=== PATIENT | female | born 1995 | race Caucasian/White ===

== ENCOUNTER 2016-12-03 08:52 | Outpatient (CLI) | payer BC, OTHER | END 2016-12-03 08:53 | disposition home or self-care (01) | DX: Z11.3 Encounter for screening for infections with a predominantly sexual mode of transmission (principal) ==

== ENCOUNTER 2016-12-07 11:28 | Outpatient (CLI) | payer OTHER ==
[2016-12-07 20:07] LABS: BASOPHILS % (AUTO) 0.5 %; EOSINOPHILS # (AUTO) 0.1 10^3/uL (0.0-0.7); HCT - HEMATOCRIT 36.4 % (37.0-47.0); HGB - HEMOGLOBIN 12.2 g/dL (12.0-16.0); LYMPHOCYTES % (AUTO) 27.4 %; MEAN CORPUSCULAR HEMOGLOBIN 29.9 pg (27.0-31.0); MEAN CORPUSCULAR HGB CONC 33.5 g/dL (32.0-36.0); MEAN CORPUSCULAR VOLUME 89.3 fL (81.0-99.0); MEAN PLATELET VOLUME 10.4 fL (7.9-10.8); MONOCYTES # (AUTO) 0.6 10^3/uL (0.0-1.0); MONOCYTES % (AUTO) 7.9 %; NEUTROPHILS # (AUTO) 4.5 10^3/uL (1.5-6.6); NEUTROPHILS % (AUTO) 62.2 %; NUCLEATED RED BLOOD CELLS AUTO 0.1 /100WBC; RED BLOOD COUNT 4.08 10^6/uL (4.20-5.40); RED CELL DISTRIBUTION WIDTH 13.3 % (12.0-15.0); UNCORRECTED WHITE BLOOD COUNT 7.3 x10^3/uL; WHITE BLOOD COUNT 7.3 x10^3/uL (4.8-10.8)
[2016-12-07 20:38] LABS: BILIRUBIN,URINE NEGATIVE (NEGATIVE); PH,URINE 7.5 PH (5.0-7.5)
[2016-12-07 21:40] LABS: WBC,URINE 0-3 /HPF (0-5)
[2016-12-08 10:38] LABS: TEST RESULT REPORT (())
== END 2016-12-07 23:59 | disposition home or self-care (01) ==
LOC: LAB.N 11:28
PROVIDERS: ATTEND Obstetrics & Gynecology
DX: Z36 Encounter for antenatal screening of mother (principal)
CPT/HCPCS: 36415; 81001; 81599; 85025; 86592; 86762; 86850; 86900; 86901; 87340; 87389

== ENCOUNTER 2017-02-18 07:23 | Outpatient (CLI) | payer OTHER ==
--- NOTE | 2017-02-18 14:36 | Ultrasound Report ---
OB ULTRASOUND: 02/18/2017 CLINICAL INDICATION: anatomy. TECHNIQUE: Real-time scanning was performed with office machines sales representative static images obtained. LAST MENSTRUAL PERIOD --- Clinical Age --- US Age 20 weeks 2 days EFW Hadlock 350 g EFW% Hadlock --- Heart Rate 138 bpm EDC 07/07/2017 US EDC 07/06/2017 BPD [place] 20 weeks 0 days; Mean mm 46.3 HC [place] 20 weeks 3 days; Mean mm 179.8 AC [place] 20 weeks 4 days; Mean mm 153.5 FL [place] 20 weeks 1 day; Mean mm 32.7 Presentation breech Placental Location posterior Cervical Length 4.1 cm Amniotic Fluid 13.5 cm FINDINGS: There is a single viable intrauterine gestation, in breech presentation. heart rate is 138 BPM. The placenta is posterior, without evidence of previa. Amniotic fluid volume is normal, with an URIEL of 13.5. By size, the fetus measures 20.3 weeks (uncertain LMP). The following anatomic structures were visualized and appear normal: The intracranial contents, including the ventricles and posterior fossa; the lips and orbits; the spine; the heart, including 4 chamber view and outflow tracts, and diaphragm; the abdominal contents, including the stomach, the bilateral kidneys, and urinary bladder, as well as a normal 3 vessel cord insertion; 4 limbs. No free fluid or adnexal lesion is appreciated. IMPRESSION: SINGLE VIABLE INTRAUTERINE GESTATION, MEASURING 20.3 WEEKS BY SIZE. NORMAL ANATOMIC SURVEY. [facility]
== END 2017-02-18 07:24 | disposition home or self-care (01) ==
LOC: DI 07:23
PROVIDERS: ATTEND Obstetrics & Gynecology
DX: Z34.82 Encounter for supervision of other normal pregnancy, second trimester (principal); Z3A.20 20 weeks gestation of pregnancy
CPT/HCPCS: 76811

== ENCOUNTER 2017-04-02 08:00 | Outpatient (CLI) | payer OTHER | END 2017-04-02 08:01 | disposition home or self-care (01) | LOC: LAB.N 08:00 | PROVIDERS: ATTEND Obstetrics & Gynecology | DX: Z36 Encounter for antenatal screening of mother (principal) | CPT/HCPCS: 36415; 82950; 85018; 86850 ==

== ENCOUNTER 2017-04-24 18:11 | Outpatient (CLI) | payer OTHER ==
[2017-04-24 18:23] VITALS: BP 125/78
[2017-04-24] MEDS ORDERED: ONDANSETRON 4 MG/2 ML VIAL IVP PRN (18:54)
[2017-04-24] MEDS ORDERED: SODIUM CHLORIDE FLUSH 0.9% 10 ML SYRINGE IVP PRN (18:54)
[2017-04-24] MEDS ORDERED: fentaNYL 100 MCG/2 ML VIAL IVP PRN (18:54)
[2017-04-24] MEDS ORDERED: PENICILLIN G POTASSIUM 5,000,000 UNIT in SODIUM CHLORIDE 0.9% MINIBAG 100 ML IV ONE (18:54)
[2017-04-24] MEDS ORDERED: LACTATED RINGERS 1,000 ML IV SCH (19:00)
[2017-04-24] MEDS ORDERED: ACETAMINOPHEN 325 MG TABLET PO SCH (19:00)
[2017-04-24] MEDS ORDERED: SODIUM CHLORIDE FLUSH 0.9% 10 ML SYRINGE IVP SCH (22:00)
== END 2017-04-24 19:40 | disposition home or self-care (01) ==
LOC: WFO 18:11 → FBP 18:13 → WFO 19:40
PROVIDERS: ATTEND Obstetrics & Gynecology
DX: O9A.213 Injury, poisoning and certain other consequences of external causes complicating pregnancy, third trimester (principal); O36.8130 Decreased fetal movements, third trimester, not applicable or unspecified; Z3A.29 29 weeks gestation of pregnancy; W19.XXXA Unspecified fall, initial encounter
CPT/HCPCS: 85025; 99212

== ENCOUNTER 2017-06-05 13:22 | Outpatient (CLI) | payer OTHER | END 2017-06-05 13:23 | disposition home or self-care (01) | LOC: WFO 13:22 | PROVIDERS: ATTEND Obstetrics & Gynecology | DX: Z53.9 Procedure and treatment not carried out, unspecified reason (principal) ==

== ENCOUNTER 2017-06-08 08:00 | Outpatient (CLI) | payer OTHER | END 2017-06-08 08:01 | LOC: LAB.R 08:00 | PROVIDERS: ATTEND Obstetrics & Gynecology | DX: Z36.9 Encounter for antenatal screening, unspecified (principal) | CPT/HCPCS: 87081 ==

== ENCOUNTER 2017-06-13 21:57 | Emergency (ER) | payer OTHER ==
--- NOTE | 2017-06-13 22:03 | ED Physician Documentation ---
PD HPI URI - Stated complaint Stated Complaint: FLU SYMPTOMS/30 WK OB - Chief complaint Chief Complaint: General - History obtained from History obtained from: Patient - History of Present Illness Timing - onset: How many days ago (3) Timing duration: Days (3) Timing details: Gradual onset, Still present Associated symptoms: Fever (subjective but not by thermometer), Chills, Ear pain , Nasal congestion, Sore throat, Dry cough. 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 No: Travel, Immunocompromised, Unimmunized, COPD / asthma Improves by: Medication (mucinex helped some.) Similar symptoms before: Has not had sx before Recently seen: Clinic (recent OB visit without problems. She is 37 weeks gest age.) Review of Systems Constitutional: reports: Fever, Chills, Myalgias Nose: reports: Rhinorrhea / runny nose, Congestion Throat: reports: Sore throat Cardiac: denies: Chest pain / pressure Respiratory: reports: Dyspnea, Cough. denies: Wheezing GI: reports: Nausea. denies: Abdominal Pain, Vomiting, Diarrhea : denies: Dysuria, Discharge, Vaginal bleeding Skin: denies: Rash, Lesions Neurologic: denies: Focal weakness, Numbness, Near syncope, Headache Endocrine: denies: Weight loss Immunocompromised: denies: Immunocompromised PD PAST MEDICAL HISTORY - Past Medical History Cardiovascular: None Respiratory: None Neuro: None Endocrine/Autoimmune: None - Present Medications Home Medications: Ambulatory Orders Medication Instructions Recorded Confirmed Albuterol Sulf [Ventolin Hfa 1 - 2 puffs INH Q4HR PRN #1 inhaler 06/13/17 Inhaler] Ondansetron Odt [Zofran] 4 mg TL Q6H PRN #15 tablet 06/13/17 Valacyclovir HCl [Valtrex] 1 tab PO DAILY 06/13/17 06/13/17 - Allergies Allergies/Adverse Reactions: Allergies Allergy/AdvReac Type Severity Reaction Status Date / Time No Known Drug Allergies Allergy Verified 06/13/17 22:02 PD ED PE NORMAL - Vitals Vital signs reviewed: Yes - General General: Alert and oriented X 3, No acute distress, Well developed/nourished - HEENT HEENT: Ears normal, Pharynx benign. No: Moist mucous membranes - Neck Neck: Supple, no meningeal sign, No adenopathy - Cardiac Cardiac: RRR, No murmur - Respiratory Respiratory: Clear bilaterally - Abdomen Abdomen: Soft, Non tender, Other (gravid without any tenderness) - Female Female : Deferred - Rectal Rectal: Deferred - Back Back: No CVA TTP - Derm Derm: Normal color, Warm and dry - Neuro Neuro: Alert and oriented X 3, No motor deficit, Normal speech Results - Vitals Vitals: Vital Signs - 24 hr 06/13/17 06/13/17 06/13/17 22:01 22:25 23:26 Temperature 36.8 C 36.7 C Heart Rate 88 84 81 Respiratory 20 16 24 Rate Blood Pressure 138/89 H 145/74 H O2 Saturation 98 98 Oxygen O2 Source Room air - Labs Labs: Laboratory Tests 06/13/17 06/13/17 22:30 22:30 Sodium 135 Potassium 4.0 Chloride 105 Carbon Dioxide 21 Anion Gap 9.0 BUN 11 Creatinine 0.5 Estimated GFR (MDRD) 153 Glucose 92 Calcium 9.3 Total Bilirubin < 0.2 L AST 16 ALT 10 Alkaline Phosphatase 117 Total Protein 7.0 Albumin 2.8 L Globulin 4.2 Albumin/Globulin Ratio 0.7 L Lipase 24 Influenza A (Rapid) Negative Influenza B (Rapid) Negative Influenza Types A,B Ag - PD MEDICAL DECISION MAKING - ED course Complexity details: re-evaluated patient (feeling better with neb, zofran and fluids. Still with malaise and congestion/some cough. ), considered differential , d/w patient, d/w PMD (Dr. Torres, who will see her in office tomorrow. ) Departure - Departure Disposition: 01 Home, Self Care Clinical Impression: Upper respiratory infection Qualifiers: URI type: unspecified URI Qualified Code(s): J06.9 - Acute upper respiratory infection, unspecified Qualifiers: Weeks of gestation: 37 weeks Qualified Code(s): Z3A.37 - 37 weeks gestation of Condition: Stable Record reviewed to determine appropriate education?: Yes Instructions: ED Upper Resp Infec No Abx Tx Prescriptions: Albuterol Sulf [Ventolin Hfa Inhaler] 1 - 2 puffs INH Q4HR PRN #1 inhaler PRN Reason: Shortness Of Air/Wheezing Ondansetron Odt [Zofran] 4 mg TL Q6H PRN #15 tablet PRN Reason: Nausea / Vomiting Comments: Drink lots of fluids. Tylenol if needed for pains or aches. Use the albuterol inhaler 2 puffs 4 times a day to help with cough and breathing. You can use guaifenesin for cough and congestion. Ondansetron if needed for nausea. Follow -up with GROUP MANAGING DIRECTOR this week as planned. Discharge Date/Time: 06/14/17 00:00
[2017-06-13] MEDS ORDERED: SODIUM CHLORIDE 0.9% 1,000 ML IV ONE ×2 (22:15→22:17)
[2017-06-13] MEDS ORDERED: ALBUTEROL NEB 2.5 MG/3 ML INH STA (22:15)
[2017-06-13] MEDS ORDERED: ONDANSETRON 4 MG/2 ML VIAL IVP STA ×2 (22:15→23:38)
[2017-06-13] MEDS ORDERED: ACETAMINOPHEN 325 MG TABLET PO STA (22:17)
[2017-06-13] MEDS ORDERED: ALBUTEROL NEB 2.5 MG/3 ML INH ONE (22:35)
[2017-06-13] MEDS ORDERED: ACETAMINOPHEN 325 MG TABLET PO ONE (22:39)
[2017-06-13] MEDS ORDERED: ONDANSETRON 4 MG/2 ML VIAL ONE ×2 (22:39→23:49)
[2017-06-13 22:49] LABS: ALBUMIN/GLOBULIN RATIO 0.7 (1.0-2.2); BILIRUBIN,TOTAL < 0.2 mg/dL (0.2-1.0); BUN - BLOOD UREA NITROGEN 11 mg/dL (6-20); CALCIUM 9.3 mg/dL (8.5-10.3); CARBON DIOXIDE - CO2 21 mmol/L (21-32); CHLORIDE 105 mmol/L (101-111); CREATININE 0.5 mg/dL (0.4-1.0); GFR - MDRD 153 (>89); GLUCOSE 92 mg/dL (70-100); LIPASE 24 U/L (22-51); SODIUM 135 mmol/L (135-145)
[2017-06-13 23:27] VITALS: BP 145/74
[2017-06-13] MEDS ORDERED: ONDANSETRON ODT 4 MG Prepack 2 TL PRN (23:38)
[2017-06-13] MEDS ORDERED: MAG HYDROX/AL HYDROX/SIMETH 30 ML UDC PO STA (23:38)
[2017-06-13] MEDS ORDERED: MAG HYDROX/AL HYDROX/SIMETH 30 ML UDC ONE (23:50)
[2017-06-13] MEDS ORDERED: ONDANSETRON ODT 4 MG Prepack 2 TL ONE (23:50)
== END 2017-06-14 | disposition home or self-care (01) ==
LOC: ED 21:57
DX: O26.893 Other specified pregnancy related conditions, third trimester (principal); J06.9 Acute upper respiratory infection, unspecified; Z3A.37 37 weeks gestation of pregnancy
CPT/HCPCS: 36415; 80053; 83690; 87275; 87276; 94640; 96361; 96374; 96376; 99283; 99284; A9270; J7613

== ENCOUNTER 2017-07-07 02:34 | Inpatient (IN) | payer OTHER ==
[2017-07-07] MEDS ORDERED: SODIUM CHLORIDE FLUSH 0.9% 10 ML SYRINGE IVP PRN (03:21)
[2017-07-07] MEDS ORDERED: OXYTOCIN/SODIUM CHLORIDE 250 ML IV ONE ×2 (03:21→08:33)
[2017-07-07] MEDS ORDERED: ONDANSETRON 4 MG/2 ML VIAL IVP PRN (03:21)
[2017-07-07] MEDS ORDERED: PENICILLIN G POTASSIUM 5,000,000 UNIT in SODIUM CHLORIDE 0.9% MINIBAG 100 ML IV ONE (03:21)
[2017-07-07] MEDS: LACTATED RINGERS 1,000 ML IV SCH ×3 (03:50→19:30)
[2017-07-07] MEDS ORDERED: PENICILLIN G POTASSIUM 2,500,000 UNIT in SODIUM CHLORIDE 0.9% 100ML 100 ML IV SCH ×2 (04:00→08:00)
[2017-07-07] MEDS: fentaNYL 100 MCG/2 ML VIAL IVP PRN ×2 (04:25→06:16)
[2017-07-07 04:30] LABS: BASOPHILS # (AUTO) 0.1 10^3/uL (0.0-0.1); BASOPHILS % (AUTO) 0.9 %; EOSINOPHILS # (AUTO) 0.1 10^3/uL (0.0-0.7); EOSINOPHILS % (AUTO) 0.8 %; HGB - HEMOGLOBIN 11.6 g/dL (12.0-16.0); LYMPHOCYTES # (AUTO) 3.1 10^3/uL (1.5-3.5); LYMPHOCYTES % (AUTO) 24.4 %; MEAN CORPUSCULAR HEMOGLOBIN 28.4 pg (27.0-31.0); MEAN CORPUSCULAR HGB CONC 32.5 g/dL (32.0-36.0); MEAN CORPUSCULAR VOLUME 87.5 fL (81.0-99.0); MEAN PLATELET VOLUME 11.5 fL (7.9-10.8); MONOCYTES % (AUTO) 7.5 %; NEUTROPHILS # (AUTO) 8.4 10^3/uL (1.5-6.6); NEUTROPHILS % (AUTO) 66.4 %; PLT - PLATELET COUNT 203 10^3/uL (130-450); RED CELL DISTRIBUTION WIDTH 15.1 % (12.0-15.0); WHITE BLOOD COUNT 12.7 x10^3/uL (4.8-10.8)
[2017-07-07] MEDS ORDERED: PENICILLIN G POTASSIUM 5,000,000 UNIT in SODIUM CHLORIDE 0.9% MINIBAG 100 ML IV SCH (04:38)
[2017-07-07] MEDS ORDERED: fent/BUPIV 2 MCG/0.125% 0 ML EP ONE (05:09)
[2017-07-07] MEDS ORDERED: TERBUTALINE 1 MG/ML VIAL SUBQ ONE (05:35)
[2017-07-07] MEDS ORDERED: TERBUTALINE 1 MG/ML VIAL SUBQ SCH ×2 (05:50→06:11)
[2017-07-07] MEDS ORDERED: ALBUTEROL 6.7 GM INHALER INH PRN (05:51)
--- NOTE | 2017-07-07 06:16 | PROVIDER PROGRESS NOTE ---
Subjective - Prog Note Date Prog Note Date: 07/07/17 Prog Note Time: 06:12 Objective - Vital Signs/Intake & Output Reviewed Vital Signs: Yes Vital Signs: Vital Signs x48h Temp Pulse Resp BP Pulse Ox 07/07/17 02:51 97.9 F 66 22 126/75 100 - Objective General Appearance: positive: Moderate distress Neurologic/Psychiatric: positive: Oriented x3 - Lab Results Fish Bones: 07/07/17 03:45 Other Labs: Lab Results x24hrs 07/07/17 Range/Units 03:45 WBC 12.7 H (4.8-10.8) x10^3/uL RBC 4.10 L (4.20-5.40) 10^6/uL Hgb 11.6 L (12.0-16.0) g/dL Hct 35.8 L (37.0-47.0) % MCV 87.5 (81.0-99.0) fL MCH 28.4 (27.0-31.0) pg MCHC 32.5 (32.0-36.0) g/dL RDW 15.1 H (12.0-15.0) % Plt Count 203 (130-450) 10^3/uL MPV 11.5 H (7.9-10.8) fL Neut # 8.4 H (1.5-6.6) 10^3/uL Lymph # 3.1 (1.5-3.5) 10^3/uL [place] # 1.0 (0.0-1.0) 10^3/uL Eos # 0.1 (0.0-0.7) 10^3/uL Baso # 0.1 (0.0-0.1) 10^3/uL Absolute Nucleated RBC 0.01 x10^3/uL Nucleated RBC % 0.1 /100WBC Assessment/Plan - Problem List (1) Active labor at term Impression: 22 yo with a 40w0d IUP Active labor decel x 10 minutes down to the 80's Labor course concerning for high station GBS positive, S/p 1st dose of PCN No S/s HSV Will continue PCN Have anesthesia, Jimmy Cano FAMILY MEDIATOR, place epidural Will share with the patient my concerns of a potential delivery once she is more comfortable H&P dictated [id number]
--- NOTE | 2017-07-07 06:49 | PROVIDER PROGRESS NOTE ---
Subjective - Prog Note Date Prog Note Date: 07/07/17 Prog Note Time: 06:48 - Subjective Subjective: Patient lying on her right side, in a chair holding her hand. Mom and dad at bedside. Patient in a lot of pain. Back having spasms causing her pain as well. FHT's reactive and category 1. Bseline 140-150's. No decels. Contractions Q 2-4 minutes. Objective - Vital Signs/Intake & Output Reviewed Vital Signs: Yes Vital Signs: Vital Signs x48h Temp Pulse Resp BP Pulse Ox 07/07/17 02:51 97.9 F 66 22 126/75 100 - Objective General Appearance: positive: Alert, Mild distress - Lab Results Fish Bones: 07/07/17 03:45 Other Labs: Lab Results x24hrs 07/07/17 Range/Units 03:45 WBC 12.7 H (4.8-10.8) x10^3/uL RBC 4.10 L (4.20-5.40) 10^6/uL Hgb 11.6 L (12.0-16.0) g/dL Hct 35.8 L (37.0-47.0) % MCV 87.5 (81.0-99.0) fL MCH 28.4 (27.0-31.0) pg MCHC 32.5 (32.0-36.0) g/dL RDW 15.1 H (12.0-15.0) % Plt Count 203 (130-450) 10^3/uL MPV 11.5 H (7.9-10.8) fL Neut # 8.4 H (1.5-6.6) 10^3/uL Lymph # 3.1 (1.5-3.5) 10^3/uL [place] # 1.0 (0.0-1.0) 10^3/uL Eos # 0.1 (0.0-0.7) 10^3/uL Baso # 0.1 (0.0-0.1) 10^3/uL Absolute Nucleated RBC 0.01 x10^3/uL Nucleated RBC % 0.1 /100WBC Assessment/Plan - Problem List (1) Active labor at term Impression: 22 yo with a 40w0d IUP Active labor Significant late deceleration High station D/W Rossi and my concerns that the baby would not tolerate a vaginal delivery given the late deceleration. Also, the station is still high at -1 with a relatively small maternal pelvic outlet. I discussed with the patient my recommendation to have a delivery. I discussed the risks, benefits, alternatives, indications and expectations of surgery. Included in the discussion were risks of hemorrhage, infection and damage to surrounding organs (including inadvertant laceration, cauterization, ligation). All questions were answered to her satisfaction. Patient verbalizes her desire to proceed to a delivery. Will proceed.
[2017-07-07] MEDS ORDERED: CITRIC ACID/SODIUM CITRATE 15 ML UDC PO ONE (07:05)
[2017-07-07] MEDS ORDERED: LACTATED RINGERS 1,000 ML IV ONE ×2 (07:16→09:01)
[2017-07-07] MEDS ORDERED: ALBUTEROL NEB 2.5 MG/3 ML INH PRN (07:23)
[2017-07-07 08:18] LABS: CORD ARTERIAL BLOOD PH 7.244
[2017-07-07 08:19] LABS: CORD ARTERIAL BLOOD HCO3 25.5
[2017-07-07 08:20] LABS: CORD VENOUS BLD PO2 20.2; CORD VENOUS BLOOD BASE EXCESS -2.7; CORD VENOUS BLOOD HCO3 23.1; CORD VENOUS BLOOD OXYGEN SAT 48.4; CORD VENOUS BLOOD PCO2 43.4; CORD VENOUS BLOOD PH 7.344; CORD VENOUS BLOOD TOTAL CO2 24.4
[2017-07-07] MEDS ORDERED: MAGNESIUM HYDROXIDE 2,400 MG/30 ML UDC PO PRN (08:29)
[2017-07-07] MEDS ORDERED: CYCLOBENZAPRINE 10 MG TABLET PO PRN (08:33)
--- NOTE | 2017-07-07 08:48 | OPERATIVE REPORT ---
Operative Report - General Admit Date: 07/07/17 - Other Other Information/Narrative: Date of operation: 07/07/2017 Surgeon: Sylvie Estrada DO FACMELISSA Bone Char Operator: ROGER Moreno Traffic Personnel Supervisor: Jakob Ramirez CRNA Anesthesia: Spinal Pre-op Dx: 1. 22 yo with a 40w0d IUP 2. Nonreassuring heart tones 3. Poor descent Post-op Dx: 1. 22 yo with a 40w0d IUP 2. Nonreassuring heart tones 3. Poor descent Procedure: Primary low transverse delivery Findings: Viable male in VTX presentation named, "[place]." Body cord x 1 reduced. Normal uterus, fallopian tubes and ovaries. Apgars 8/9. Gases: Arterial - pH 7.344, PO2 43.4, BD -2.7, Venous- pH7.244, PCO2 59, BE -2. Specimens: 1. Placenta 2. Cord blood 3. Cord gases Drains: 1. Baron catheter to gravity 2. Prevena wound vac EBL: 500 mL Complications: None Dictation: [id number]
--- NOTE | 2017-07-07 09:25 | HISTORY & PHYSICAL EXAMINATION ---
Date of Admission: 07/07/2017 IDENTIFICATION: A 22-year-old G1, P0, with a 40 and 0 week intrauterine . EDC is 07/07/2017 established by a 9 week ultrasound. HISTORY OF PRESENT ILLNESS: The patient is a patient at [facility] [place] with whom we have been seeing since 9 weeks' gestation. She had an unknown LMP and her 9-week ultrasound established dates. She has had routine care. This has essentially been unremarkable. She did start acyclovir at about 36 weeks gestation for HSV outbreak prophylaxis. She was seen yesterday on 07/06/2017 and her cervical examination showed that she was 3 cm dilated, 80% effaced and -1 to -2 station. She presented early in the morning of 07/07/2017 for a labor check and was 4 cm dilated, 100% effaced and -1 station. She was admitted to the hospital and given routine care including penicillin for GBS prophylaxis. She decided that she wanted an epidural for pain control and about 4 minutes into the procedure there was a significant late deceleration for to the 80 - 90's, for approximately 10 minutes although the tracing is hard to interpret specifically. The patient was rotated given oxygen and terbutaline. Cervical examination showed that she had progressed to 8 cm dilation, 90% effacement and -1 station. The heart tones have recovered at this point in time with a baseline in the 140s with moderate long-term variability. A bulging bag of water was palpated at the time of the last cervical examination. At this point in time we will continue to try to give the patient an epidural, but I am not sure this baby will fit because her bony pelvis does feel to be perhaps 8 cm in diameter and the head is still relatively high. When I met the patient's mother, Anastasia, yesterday she stated that she delivered her children via delivery secondary to failure to dilate. PAST MEDICAL HISTORY: 1. Recurrent urinary tract infections. 2. Distant history of depression in high school. 3. ADHD. PAST SURGICAL HISTORY: None. ALLERGIES: NO KNOWN DRUG ALLERGIES. MEDICATIONS: 1. Valtrex 500 mg. 2. Zantac. 3. vitamins. SOCIAL HISTORY: She denies any current tobacco, alcohol or illicit drug use. She did smoke tobacco in the past, up to 1/2 pack per day for less than 10 years. She stopped smoking less than a year ago. PAST GYNECOLOGIC HISTORY: She denies any abnormal Pap smears or sexually transmitted diseases with the exception of HSV. FAMILY HISTORY: Depression and hypertension. REVIEW OF SYSTEMS: Negative unless otherwise stated. PHYSICAL EXAMINATION: VITAL SIGNS: Temperature is 97.9, heart rate 66, blood pressure 126/75, O2 saturations are 100 percent. GENERAL: This patient is a well-developed, well-nourished, female who is in some distress secondary to being in active labor. She is alert and oriented x3. CARDIOVASCULAR: Rate is regular. No murmurs or rubs. LUNGS: Lungs are clear to auscultation bilaterally. ABDOMEN: Gravid, nontender. Fundal height is 37 cm. Estimated weight 8- 1/2 pounds. LABORATORY DATA: Reveal that she is O positive, antibody screen negative. Chlamydia and gonorrhea both negative, HIV negative, RPR nonreactive , rubella immune, hepatitis B surface antigen nonreactive. One hour GTT is 87. GBS positive. anatomical survey is consistent with dates and within normal limits with a posterior placenta, 3-vessel umbilical cord. Cervical exam cervical length was 4.1 cm. URIEL 13.5. LABORATORY: From this morning show a white count of 12.7 thousand, H and H 11.6 and 35.8, platelets 203. ASSESSMENT: 1. A 22-year-old G1, P0, with a 40 and 0 week intrauterine . 2. Active labor. 3. Status post prolonged deceleration down to the 80s. 4. Labor, concerning for lack of descent and a contracted maternal pelvic outlet. 5. GBS positive, status post one dose of penicillin. 6. History of HSV, currently no signs or symptoms of an outbreak. PLAN: 1. Admit to the hospital. 2. We will try to get epidural in place. 3. I have a low threshold to perform a delivery for the patient given the heart rate and high station. TD: 07/07/2017 08:51 NATALIA
[2017-07-07] MEDS: diphenhydrAMINE 25 MG CAPSULE PO PRN (10:41)
[2017-07-07] MEDS: NALBUPHINE 20 MG/ML AMP ONE ×2 (11:43→16:20)
[2017-07-07] MEDS: DOCUSATE SODIUM 100 MG CAPSULE PO SCH ×2 (11:44→21:13)
[2017-07-07] MEDS ORDERED: NALBUPHINE 20 MG/ML AMP ONE ×2 (11:47→16:21)
[2017-07-07] MEDS: ACETAMINOPHEN 500 MG TABLET PO SCH ×2 (11:57→20:16)
--- NOTE | 2017-07-07 12:21 | OPERATIVE REPORT ---
[address] [address] Operative Report Patient: MIKEL WILKERSON Admit Date: 07/07/2017 Discharge Date: DOS: 07/07/2017 Physician: Sylvie Estrada DO DATE OF SURGERY: 07/07/2017 PREOPERATIVE DIAGNOSES 1. A 22-year-old, G1, P0 with 40 and 0/7 week intrauterine . 2. Nonreassuring heart tones. 3. Poor descent. POSTOPERATIVE DIAGNOSES 1. A 22-year-old, G1, P0 with 40 and 0/7 week intrauterine . 2. Nonreassuring heart tones. 3. Poor descent. NAME OF PROCEDURE: Primary low transverse delivery. SURGEON: Sylvie Estrada DO, FACOG ANESTHESIA: Spinal. CONTROL SPECIALIST: ARELY Thomas GROUP MANAGER: Jakob Ramirez CRNA. FINDINGS: A viable male infant in vertex presentation, named [place]. Body cord x1 reduced. Normal uterus, fallopian tubes, and ovaries. Apgars 8 and 9 at one and five minutes respectively. Cord gases show arterial pH 7.344, pCO2 43.4, PO2 20.2, HCO3 21, base excess -2.7, that was venous. Arterial was 7.22, pCO2 59, PO2 8, base excess -2, HCO3 25.5. SPECIMENS 1. Placenta. 2. Cord blood. 3. Cord gases. DRAINS 1. Baron catheter to gravity. 2. Prevena wound VAC. ESTIMATED BLOOD LOSS: 500 mL COMPLICATIONS: None. BRIEF HISTORY: The patient is a patient of [facility] who presented on 07/07/2017 with complaints of contractions. Initial cervical examination by the RN showed that she was 4 cm dilated, 100% effaced and -1 station. This is improved from her office visit. Cervical examination on 07/06/2017 of 3 cm dilation, 80% effaced and -1 to -2 station. The patient was admitted to the hospital and was attempted to be given an epidural. However, there was significant deceleration for about 10 minutes and minimum to the 80s-90s. resuscitation was performed using rotation of the patient's O2 and terbutaline. Repeat cervical examination showed that she was 8 cm dilated, 90% effaced and -1 station. Given the significant deceleration and poor descent, I recommended the patient to proceed to a delivery. I discussed with her the risks, benefits, indications, and expectations of a primary delivery. Included in our discussion were the risks of hemorrhage, infection, damage to surrounding organs. With respect to damage to surrounding organs, this may include, but not limited to inadvertent laceration, cauterization or ligation of the adjacent intestines, bladder and ureters. Furthermore, with indication for the delivery, it is most likely she would require another delivery for any future pregnancies. After all of the patient's and Juanjose's questions were answered to their satisfaction, she verbalized her desire to proceed with surgery. Consent forms have been signed. OPERATION IN DETAIL: The patient was identified and consented, taken to the operating room where IV access was already in place. She was then given satisfactory spinal anesthesia as per Alcides Ramirez. Sequential compression devices were placed on her lower extremities and turned on. Baron catheter was placed in her bladder. The patient was then prepped and draped in normal sterile fashion in dorsal supine position with a leftward tilt. A timeout was performed which correctly identified the patient, site of procedure, and procedure itself. Repeat skin testing was found to be satisfactory. A Pfannenstiel skin incision was made approximately 2 fingerbreadths above the level of pubic symphysis. The incision was then carried through the underlying layer of fascia with electrocautery. The fascia was then nicked in the midline and extended laterally. Rectus muscle was then dissected off the fascia. Rectus muscles were identified and then bluntly in the midline. Peritoneum was entered bluntly as well. Incision was then extended superiorly and inferiorly. A bladder flap was then created by dissecting off the vesicouterine peritoneum. The hysterotomy was made in a low transverse uterine segment. A bulging bag of amniotomy revealed clear fluid, particularly after rupture was made. With the help of fundal pressure, the 's head was delivered through the hysterotomy. nose and mouth were suctioned with a bulb syringe. Body cord was noted and reduced. Again, with the help of fundal pressure, the rest of the delivered easily and without difficulty through the hysterotomy. Again, the nose and mouth were suctioned with a bulb syringe. The umbilical cord was doubly clamped and cut, and the infant was handed off to the awaiting broiler manager, Dr. Fahad Goodrich. An approximately 8 cm section of umbilical cord was then cut off for cord gases, then cord blood was obtained. Uterus was then internally massaged and placenta delivered manually. The placenta was sent off to Pathology for further review. Uterus was then delivered and the abdomen, cleared of all clots and debris. Hysterotomy was then closed with 2 stitches 0 Vicryl in a running locked fashion, and then an imbricating fashion using Lembert stitch. Hemostasis was noted. The uterus was then returned to the abdomen, and the abdomen was then copiously irrigated and found to be hemostatically stable. The peritoneum was closed with a simple running stitch of 2-0 Vicryl. The same stitch was used to reapproximate the rectus muscles. The fascia was then closed with 0 Vicryl in a running fashion. Deion fascia was then reapproximated with 2 interrupted stitches of 0 Vicryl. Skin was then closed with 4-0 Monocryl in a subcuticular fashion. Finally, a Prevena wound VAC was placed on the incision and turned on. The patient tolerated the procedure well, was taken back to the recovery room in stable and awake condition. She will be given routine care including around the clock Celebrex, Tylenol and oxycodone. All sponge, lap, and needle counts were correct x2 as per nurse report. Sylvie Estrada DO MSC TD: 07/07/2017 09:40
[2017-07-07] MEDS: ceFAZolin 2 GM/50 ML 2 GM/50 ML BAG IV SCH (15:20)
[2017-07-07] MEDS: oxyCODONE 5 MG TABLET PO SCH ×3 (15:23→16:21)
[2017-07-07] MEDS: CELECOXIB 100 MG CAPSULE PO SCH ×2 (15:23→21:14)
[2017-07-07] MEDS: SIMETHICONE CHEW 80 MG TABLET PO SCH ×2 (15:51→22:04)
[2017-07-07] MEDS: SODIUM CHLORIDE FLUSH 0.9% 10 ML SYRINGE IVP SCH ×2 (15:55→16:22)
--- NOTE | 2017-07-07 19:53 | PROVIDER PROGRESS NOTE ---
Subjective - Prog Note Date Prog Note Date: 07/07/17 Prog Note Time: 19:49 - Subjective Pt reports feeling: Improved Subjective: Patient breast feeding baby. at bedside. Feeling much better. Legs pruritic with SCDs worsening symptoms. Got 1 dose of medication for pruritis. Objective - Vital Signs/Intake & Output Vital Signs: Vital Signs x48h Temp Pulse Resp BP Pulse Ox 07/07/17 18:30 98.4 F 76 18 118/54 L 100 07/07/17 17:00 18 07/07/17 16:00 18 07/07/17 15:00 16 07/07/17 13:45 98.2 F 81 18 123/55 L 100 07/07/17 13:00 18 07/07/17 12:00 18 Intake & Output: Intake & Output 07/04/17 07/05/17 07/06/17 07/07/17 23:59 23:59 23:59 23:59 Intake Total 2325 Output Total 1300 Balance 1025 - Lab Results Fish Bones: 07/07/17 03:45 Other Labs: Lab Results x24hrs 07/07/17 07/07/17 Range/Units 08:03 03:45 WBC 12.7 H (4.8-10.8) x10^3/uL RBC 4.10 L (4.20-5.40) 10^6/uL Hgb 11.6 L (12.0-16.0) g/dL Hct 35.8 L (37.0-47.0) % MCV 87.5 (81.0-99.0) fL MCH 28.4 (27.0-31.0) pg MCHC 32.5 (32.0-36.0) g/dL RDW 15.1 H (12.0-15.0) % Plt Count 203 (130-450) 10^3/uL MPV 11.5 H (7.9-10.8) fL Neut # 8.4 H (1.5-6.6) 10^3/uL Lymph # 3.1 (1.5-3.5) 10^3/uL [place] # 1.0 (0.0-1.0) 10^3/uL Eos # 0.1 (0.0-0.7) 10^3/uL Baso # 0.1 (0.0-0.1) 10^3/uL Absolute Nucleated RBC 0.01 x10^3/uL Nucleated RBC % 0.1 /100WBC Cord ABG pH 7.244 Cord ABG pCO2 59.0 Cord ABG pO2 8 Cord ABG HCO3 25.5 Cord ABG Total CO2 27 Cord ABG Base Excess -2 Cord ABG O2 Sat 5 Cord VBG pH 7.344 Cord VBG pCO2 43.4 Cord VBG pO2 20.2 Cord VBG HCO3 23.1 Cord VBG Total CO2 24.4 Cord VBG Base Excess -2.7 Cord VBG O2 Sat 48.4 Assessment/Plan - Problem List (1) delivery delivered Impression: 22 yo S/p primary CD for NRFHT's and poor descent 07/07/2017, POD #0 Normal recovery Routine care with aggressive pain control (routine Celebrex, acetaminophen and oxycodone). Anticipate discharge to home either 07/09 or 07/10/2017 Rx for ibuprofen, acetaminophen and colace faxed to [facility] Handwritten Rx for oxycodone for breakthrough pain
[2017-07-07] MEDS ORDERED: NALBUPHINE 10 MG/1 ML IVP PRN (19:56)
[2017-07-08] MEDS ORDERED: NALBUPHINE 20 MG/ML AMP ONE ×2 (00:23→00:28)
[2017-07-08] MEDS: SODIUM CHLORIDE FLUSH 0.9% 10 ML SYRINGE IVP SCH (00:28)
[2017-07-08] MEDS: oxyCODONE 5 MG TABLET PO SCH ×8 (02:05→23:41)
[2017-07-08] MEDS: ACETAMINOPHEN 500 MG TABLET PO SCH ×4 (04:43→23:41)
[2017-07-08] MEDS: SIMETHICONE CHEW 80 MG TABLET PO SCH ×3 (06:58→19:58)
[2017-07-08] MEDS ORDERED: MORPHINE PF 5 MG/10 ML AMP EP ONE (07:40)
[2017-07-08] MEDS ORDERED: ePHEDrine 50 MG/ML VIAL IVP ONE (07:40)
[2017-07-08] MEDS ORDERED: ONDANSETRON 4 MG/2 ML VIAL IVP ONE (07:40)
[2017-07-08] MEDS ORDERED: OXYTOCIN 10 UNIT/ML VIAL IV ONE (07:40)
[2017-07-08] MEDS ORDERED: KETOROLAC 30 MG/ML VIAL IVP ONE (07:40)
--- NOTE | 2017-07-08 08:39 | PROVIDER PROGRESS NOTE ---
Subjective - Prog Note Date Prog Note Date: 07/08/17 Prog Note Time: 08:35 - Subjective Pt reports feeling: Improved Subjective: Patient sitting in bed. Baby in the bassinet, in bed in visitor's bed. Feeling better. Has ambulated and urinated. Pain is controlled. Still having itching. Saline lock removed. Objective - Vital Signs/Intake & Output Vital Signs: Vital Signs x48h Temp Pulse Resp BP Pulse Ox 07/08/17 04:21 97.9 F 76 18 121/63 100 07/08/17 02:00 20 07/08/17 01:00 18 Intake & Output: Intake & Output 07/05/17 07/06/17 07/07/17 07/08/17 23:59 23:59 23:59 23:59 Intake Total 2625 350 Output Total 1550 300 Balance 1075 50 - Objective General Appearance: positive: No acute distress Abdomen: positive: Non-tender (Wound vac in place and working well) Neurologic/Psychiatric: positive: Oriented x3 - Lab Results Fish Bones: 07/07/17 03:45 Assessment/Plan - Problem List (1) delivery delivered Impression: 22 yo S/p primary CD 07/07/2017, POD #1 Normal recovery Pruritis Routine care with aggressive pain management Nubaine Shower today Home maybe tomorrow.
[2017-07-08] MEDS: DOCUSATE SODIUM 100 MG CAPSULE PO SCH ×2 (08:52→19:58)
[2017-07-08] MEDS: CELECOXIB 100 MG CAPSULE PO SCH ×2 (08:52→20:38)
[2017-07-08] MEDS ORDERED: NALBUPHINE 20 MG/ML AMP IVP PRN (10:33)
[2017-07-08] MEDS: diphenhydrAMINE 25 MG CAPSULE PO PRN ×2 (12:05→20:38)
--- NOTE | 2017-07-08 12:46 | DISCHARGE SUMMARY ---
DATE OF ADMISSION: 07/07/2017 DATE OF DISCHARGE: 07/09/2017 DIAGNOSES ON ADMISSION 1. A 22-year-old, G1, P0 with a 40-0/7-week intrauterine . 2. Active labor. DIAGNOSES ON DISCHARGE 1. A 22-year-old, G1, P1-0-0-1, status post primary delivery on 2016 secondary to nonreassuring heart tones and poor descent. 2. Normal recovery. BRIEF HISTORY: This is a patient of [facility] who presented on the morning of 07/07/2017 in active labor. During placement for her epidural the baby had a significant deceleration. Though the patient was found to be 8 cm dilated, she was still pretty high at -1 station. Given the clinical situation, I recommended the patient to undergo a delivery. The patient underwent an unremarkable delivery and delivered a viable male named Noé. Body cord x1 was noted and easily reduced. Apgars were 8 and 9 at one and five minutes respectively. Cord gases show arterial pH of 7.3 and base excess of -2.7, venous was 7.22 and a base excess of -2. Noé weighed 3613 grams. EBL was 500 mL, and there were no complications. The patient's postoperative course has only been remarkable for some pruritus, most likely due to her epidural. She is ambulating and tolerating a regular diet. She is urinating without difficulty, and her pain was controlled with oral medications. The patient did have some itching, but was probably because of the narcotics she received for her spinal anesthesia. The patient will be discharged to home on postop day #2 with instructions to follow up in the clinic next week for her Prevena wound VAC removal. Unfortunately, I will be out of the office at that time. MEDICATIONS: Prescriptions for ibuprofen, Tylenol, and Colace have already been sent to her pharmacy of choice, which is [email or web address] in [place], [place]. A handwritten prescription for oxycodone is available for her for discharge to home for any breakthrough pain she may experience. The patient is to call should she have any worsening fevers, chills, abdominal pain, or vaginal bleeding. Dictating Provider: Sylvie Estrada DO MSC/ TD: 07/08/2017 12:40 MTDShantel
[2017-07-09] MEDS: oxyCODONE 5 MG TABLET PO SCH (04:17)
[2017-07-09] MEDS: CELECOXIB 100 MG CAPSULE PO SCH (08:30)
[2017-07-09] MEDS: ACETAMINOPHEN 500 MG TABLET PO SCH (08:31)
[2017-07-09] MEDS: DOCUSATE SODIUM 100 MG CAPSULE PO SCH (08:32)
[2017-07-09] MEDS: SIMETHICONE CHEW 80 MG TABLET PO SCH (08:33)
[2017-07-09] MEDS: LACTATED RINGERS 1,000 ML IV SCH ×2 (08:33→10:15)
[2017-07-09] MEDS: ceFAZolin 2 GM/50 ML 2 GM/50 ML BAG IV SCH (08:34)
--- NOTE | 2017-07-09 08:34 | PROVIDER PROGRESS NOTE ---
Subjective - Prog Note Date Prog Note Date: 07/09/17 Prog Note Time: 08:28 - Subjective Pt reports feeling: Improved Subjective: Patient sitting in bed, breast feeding baby. Pruritis improving, benadryl now helps. Scant pinkish discharge. No nausea or vomiting. Pain controlled with oral medications. Ambulating and tolerating a regular diet. Desires to go home this evening. Objective - Vital Signs/Intake & Output Reviewed Vital Signs: Yes Vital Signs: Vital Signs x48h Temp Pulse Pulse Resp BP Pulse Ox 07/09/17 02:00 97.7 F 0 L 83 18 130/80 100 Intake & Output: Intake & Output 07/06/17 07/07/17 07/08/17 07/09/17 23:59 23:59 23:59 23:59 Intake Total 2625 350 Output Total 1550 300 Balance 1075 50 - Objective General Appearance: positive: No acute distress Eyes Bilateral: positive: Normal inspection Abdomen: positive: Non-tender (Firm fundus. Wound vac in place and working well. ) - Lab Results Fish Bones: 07/07/17 03:45 Assessment/Plan - Problem List (1) delivery delivered Impression: 22 yo S/p primary CD 07/07/2017, POD #2 Normal recovery Discharge to home today Rx for postop care faxed/written Return next week for removal of her wound vac Call for worsening fevers, chills, abdominal pain or vaginal bleeding. Discharge Plan Disposition: 01 Home, Self Care Condition: Good Diet: Regular Activity Restrictions: Activity as Tolerated (No lifting > 10 lbs) Shower Restrictions: No Driving Restrictions: Yes (No driving) Weight Bearing: Full Weight No Smoking: If you smoke, Please STOP! Call for help.
[2017-07-09] MEDS: SODIUM CHLORIDE FLUSH 0.9% 10 ML SYRINGE IVP SCH ×2 (08:35→10:16)
[2017-07-09 12:38] VITALS: BP 129/67
--- NOTE | 2017-07-09 17:32 | Labor Flowsheet ---
Labor Flowsheet Datetime Report Generated by CPN: 07/09/2017 17:31 Datetime: 07/09/2017 12:23 VITAL SIGNS NBP Sys/Oriana/Mean (mmHg): 129 : 67 : 81 Pulse: 79 LaborFlag: Labor Datetime: 07/09/2017 08:39 SpO2 (%): 100 Datetime: 07/07/2017 07:00 UTERINE ACTIVITY Monitor Mode: External Frequency (min): 1.5-2.5 Quality: Strong Duration (sec): 80-110 Pattern: Normal: <= 5 Contractions in 10 Minutes Resting Tone (Palpate): Relaxed ASSESSMENT A Monitor Mode: External US FHR Baseline Rate : 145 Variability: Moderate 6-25 bpm Accelerations: 10X10 Decelerations: None Category: Category I Datetime: 07/07/2017 06:55 Provider Notified (Name): C/S consent signed. HIRED HAND Cano here to review anesthesia procedure in O R, spinal vs general. Datetime: 07/07/2017 06:50 COMMUNICATION Communication: RN at Bedside; Provider at Bedside Datetime: 07/07/2017 06:30 FHR Baseline Changes: BL now @ 150 with periods of min variability Actions for Decelerations: Oxygen Applied Datetime: 07/07/2017 06:18 Analgesics/Sedatives: Fentanyl (mcg) @ 50 Datetime: 07/07/2017 06:04 Comments: Decel while up to BSC; back to [facility] directly Datetime: 07/07/2017 05:59 PAIN Pain Scale: 10 Pain Presence: Constant Pain Type: Crushing; Contraction; Pressure Pain Location: Back; Right Hip; Left Hip Pain Goal: 5 Pain Relief Measures: Comfort Measures (Annotations: Pt hyperventilating with pain with ensuing peter k spasm. Will consult with anesthesia and OB regarding trying to admn epidural with pt in side laying position.) Pain Coping: Requesting Pain Medication or Epidural; Crying; Writhing Datetime: 07/07/2017 05:38 Provider Reviewed Strip: Yes Strip Reviewed by: Sean Datetime: 07/07/2017 05:30 MEDICATIONS Tocolytics: Terbutaline 0.25mg Subcutaneous Medication Comments: R upper arm Datetime: 07/07/2017 05:29 Respirations: 30 Oxygen Amount (LPM): 10 Oxygen Method: Face Mask Datetime: 07/07/2017 05:25 Monitor Interventions for FHR: Ultrasound Adjusted Datetime: 07/07/2017 05:15 Monitor Interventions for UA: [place] Adjusted Datetime: 07/07/2017 05:08 PROCEDURE TIME OUT Procedure Type: 0508 Procedure Verify: Correct Patient Identity; Correct Side and Site are Marked; Accurate Procedure Co nsent Form; Agreement on Procedure to be Done; Correct Patient Position; Addressed Need to Administer Antibiotics or Fluids for Irrigation; Safety Precautions Based on Patient History or Medication Use ANESTHESIA Anesthesia Plans: Epidural Epidural Positioning: Sitting Datetime: 07/07/2017 05:00 Anesthesia Comments: HIRED HAND Cano here in L_D Datetime: 07/07/2017 04:45 I/O Interventions: Up to BR Datetime: 07/07/2017 04:40 Notification Reason: Labor Status; Pain Datetime: 07/07/2017 04:30 Contraction Comments: tachysystole noted Antibiotics: Penicillin IV (Units) @ (Annotations: 5M units) Datetime: 07/07/2017 03:45 PATIENT CARE IV/Blood Work: IV Started; IV Bolus Started; Labs Drawn with IV Start; IV Bag Number @
== END 2017-07-09 16:30 | disposition home or self-care (01) | DRG 765 ==
LOC: WFO 02:34 → FBP 02:35 → WFO 03:05
PROVIDERS: ADMIT Obstetrics & Gynecology; ATTEND Obstetrics & Gynecology
PROC: 10D00Z1 Extraction of Products of Conception, Low, Open Approach (ICD-10-PCS; principal; 2017-07-07 07:30)
DX: O98.32 Other infections with a predominantly sexual mode of transmission complicating childbirth (principal); O41.1230 Chorioamnionitis, third trimester, not applicable or unspecified; O69.2XX0 Labor and delivery complicated by other cord entanglement, with compression, not applicable or unspecified; O76 Abnormality in fetal heart rate and rhythm complicating labor and delivery; A60.00 Herpesviral infection of urogenital system, unspecified; O99.824 Streptococcus B carrier state complicating childbirth; O64.8XX0 Obstructed labor due to other malposition and malpresentation, not applicable or unspecified; O99.73 Diseases of the skin and subcutaneous tissue complicating the puerperium; L29.9 Pruritus, unspecified; Z3A.40 40 weeks gestation of pregnancy; Z37.0 Single live birth; Z79.899 Other long term (current) drug therapy; Z87.440 Personal history of urinary (tract) infections; Z86.59 Personal history of other mental and behavioral disorders; Z87.891 Personal history of nicotine dependence
CPT/HCPCS: 82803; 85025; 99213